=== PATIENT | female | born 1945 | race Caucasian/White ===

== ENCOUNTER 2017-04-30 13:09 | Emergency (ER) | payer OTHER, MEDICARE ==
[~2017-04-30] VITALS: Ht 160 cm; Wt 66.7 kg
--- NOTE | 2017-04-30 13:42 | ED UPPER/LOWER EXTREMITY COMPL ---
History of Present Illness General Chief Complaint: General Adult Stated Complaint: SIB DR OLIVEIRA TO R/O BLOOD CLOT Source: patient, family Exam Limitations: no limitations Vital Signs & Intake/Output Vital Signs & Intake/Output Vital Signs Date Time Temp Pulse Resp B/P B/P Pulse O2 O2 Flow FiO2 Mean Ox Delivery Rate 04/30 1555 96.7 66 20 145/77 97 04/30 1316 97.1 70 16 180/70 97 Room Air Allergies Coded Allergies: No Known Allergies (04/30/17) Reconcile Medications Ascorbate Calcium (Vitamin C) (Unknown Strength) TABLET (Unknown Dose) PO DAILY SUPPLEMENT (Reported) Aspirin (Ecotrin*) 81 MG TABLET. 1 TAB PO DAILY HEART/BLOOD (Reported) Calcium Carb/D3/Magnesium/Zinc (Dalton Mag Zinc + D3 Tablet) (Unknown Strength) TABLET (Unknown Dose) PO DAILY SUPPLEMENT (Reported) Cholecalciferol (Vitamin D3) (Vitamin D) (Unknown Strength) CAPSULE (Unknown Dose) PO DAILY SUPPLEMENT (Reported) Cranberry Extract (Cranberry) (Unknown Strength) CAPSULE (Unknown Dose) PO DAILY SUPPLEMENT (Reported) Cyclobenzaprine HCl 5 MG TABLET 1 TAB PO TIDPRN PRN pain Escitalopram Oxalate 10 MG TABLET 1 TAB PO DAILY MENTAL HEALTH (Reported) Fenofibrate Nanocrystallized (Fenofibrate) 145 MG TABLET 1 TAB PO DAILY CHOLESTEROL/TRIGLYCERIDES (Reported) Fish Oil/Dha/Epa (Fish Oil 1,200 MG Fish Oil) (Unknown Strength) CAPSULE ( Unknown Dose) PO DAILY SUPPLEMENT (Reported) Folic Acid (Unknown Strength) TABLET (Unknown Dose) PO DAILY SUPPLEMENT ( Reported) Hydrochlorothiazide 25 MG TABLET 0.5 TAB PO DAILY BP (Reported) Levothyroxine Sodium (Synthroid) 50 MCG TABLET 1 TAB PO AD THYROID (Reported) Levothyroxine Sodium 75 MCG TABLET 1 TAB PO AD THYROID (Reported) Magnesium Oxide (Magnesium) (Unknown Strength) CAPSULE (Unknown Dose) PO DAILY SUPPLEMENT (Reported) Meclizine HCl 12.5 MG TABLET 1 TAB PO PRN VERTIGO (Reported) Milk Thistle Seed Extract (Milk Thistle) (Unknown Strength) CAPSULE (Unknown Dose) PO DAILY SUPPLEMENT (Reported) Rosuvastatin Calcium (Crestor) 5 MG TABLET 1 TAB PO DAILY CHOLESTEROL ( Reported) Turmeric Root Extract (Turmeric) (Unknown Strength) CAPSULE (Unknown Dose) PO DAILY SUPPLEMENT (Reported) Tylenol With Codeine (Tylenol With Codeine #3 Tablet) 300 MG-30 MG TABLET 1 TAB PO BIDP PRN pain Ubidecarenone (Co Q-10) (Unknown Strength) CAPSULE (Unknown Dose) PO DAILY SUPPLEMENT (Reported) Triage Note: PT SENT TO RULE OUT DVT IN LLE. STATES THAT SHE FLEW HOME SATURDAY FROM [facility] AND THAT PRIOR TO FLYING HOME SHE WAS HAVING PAIN IN HER L CALF. PAIN HAS BEEN INCREASING SINCE Triage Nurses Notes Reviewed? yes Onset: Abrupt Duration: day(s): (5), constant, continues in ED, getting worse Timing: single episode today Severity: moderate, severe Severity Numbers: 8 Pain/Injury Location: Left: Leg. Method of Injury: unknown No Modifying Factors: none Associated Symptoms: none LMP (ages 10-50): unknown : No Patient currently breastfeeds: No HPI: 71-year-old female with a past medical history of hypertension, hyperlipidemia presents for evaluation of left lower leg pain. Patient states that symptoms have been present for about the past 4-5 days. Patient recently flew back from vacation on 2 plane rides lasting 4 AND A half hours each. Pain is present in the left lower leg and is worse with any type of movement or weightbearing. The pain resolves with rest. When the pain is present she rates it as an 8 out of 10. She's been taking ibuprofen without any improvement. She called her doctor earlier today is that she come emergency department to have DVT ruled out. She denies any previous history of DVT, recent surgery, recent trauma, any swelling, redness, fevers or any other associated symptoms. (CHAVO WASSERMAN PA-C) Past History Travel History Traveled to [place] past 21 day No Medical History Any Pertinent Medical History? see below for history Neurological: NONE EENT: NONE Cardiovascular: hypertension, hyperlipidemia Respiratory: NONE Gastrointestinal: NONE Hepatic: NONE Renal: NONE Musculoskeletal: NONE Psychiatric: NONE Endocrine: hypothyroidism Blood Disorders: NONE Cancer(s): NONE ELECTRONIC FIELD SERVICE ENGINEER/Reproductive: NONE Surgical History Surgical History: none Psychosocial History What is your primary language Moldovan Tobacco Use: Never used ETOH Use: denies use Illicit Drug Use: denies illicit drug use Family History Hx Contributory? No (CHAVO WASSERMAN PA-C) Review of Systems Review of Systems Constitutional: Reports: no symptoms. EENTM: Reports: no symptoms. Respiratory: Reports: no symptoms. Cardiovascular: Reports: no symptoms. Gastrointestinal/Abdominal: Reports: no symptoms. Genitourinary: Reports: no symptoms. Musculoskeletal: Reports: joint pain, muscle pain, muscle stiffness. Skin: Reports: no symptoms. Neurological/Psychological: Reports: no symptoms. Hematologic/Endocrine: Reports: no symptoms. Immunological: Reports: no symptoms. All Other Systems: Reviewed and Negative (LISY PA-C,CHAVO) Physical Exam Physical Exam General Appearance: well developed/nourished, no apparent distress, alert, awake Head: atraumatic, normal appearance Eyes: Bilateral: normal appearance, PERRL, EOMI. Ears, Nose, Throat: normal pharynx, normal ENT inspection, hearing grossly normal Neck: normal inspection, supple, full range of motion Cardiovascular/Respiratory: normal breath sounds, normal peripheral pulses, regular rate/rhythm, no respiratory distress Peripheral Pulses: 2+ radial (R), 2+ radial (L) Back: normal inspection, normal range of motion, no vertebral tenderness Leg Left: normal range of motion, normal inspection, tenderness (lateral lower extremity), pain, soft tissue tenderness, there is sae with palpation of the lateral aspect of the left lower leg. full ROM intact. no bruising or swelling. neurovascular supply intact. Leg Right: normal range of motion, normal inspection Hip Left: normal range of motion, normal inspection Hip Right: normal range of motion, normal inspection Knee Left: normal range of motion, normal inspection Knee Right: normal range of motion, normal inspection Foot Left: normal inspection, normal range of motion Foot Right: normal inspection, normal range of motion Lower Extremity Reflexes: 2+: knee (R), knee (L). Neurologic/Tendon: normal sensation, normal motor functions, normal tendon functions, responds to pain, no evidence tendon injury, no pulse deficit Skin: intact, normal color, warm/dry Lymphatic: no anterior cervical alice (LISY PA-C,CHAVO) Progress Differential Diagnosis: cellulitis, CHF, compartment syndrome, contusion, dislocation, DVT, fracture, sprain, tendon injury Plan of Care: Orders Procedure Date/time Status US-DUPLEX VENOUS EXTREM UNI 04/30 1342 Active Patient seen and evaluated. There is no swelling of the left lower extremity. Pain is reproducible with weightbearing and palpation. Suspect this is more of a muscle issue. However because patient has risk factor of recently being immobilized on a plane we will check an ultrasound. We'll also check an x-ray. Patient declines any pain medication at this time. 4:08 PM: X-ray shows some arthritis in the knee. Ultrasound negative for DVT. Suspect a muscle etiology. Advised rest heating pad elevation. Tylenol as needed for pain. Tylenol with codeine and cyclobenzaprine for severe pain. Advised patient this can cause drowsiness. Follow-up with the primary care doctor for further evaluation. Discussed return precautions in detail. Case discussed with Dr. GUNDERSON and he agrees with the plan. I discussed with the patient at length all of their results. I had an extensive conversation regarding need for close follow up with their primary care physician this week as well as return precautions. I answered all of their questions, they feel comfortable with the plan and follow-up care. I discussed with the patient/family the medications that they will receive. I gave them signs and symptoms that could indicate an adverse reaction. I have advised them to limit their activities until they can see how they respond to the medication. (LISY ROCHE,CHAVO) Diagnostic Imaging: Viewed by Me: Radiology Read, Ultrasound. Discussed w/RAD: Radiology Read, Ultrasound. Radiology Impression: PATIENT: TOYIN KIM PRESENT AGE: 71 PATIENT ACCOUNT NO: [id number] : 44 LOCATION: [facility] ORDERING PHYSICIAN: CHAVO WASSERMAN PA-C SERVICE DATE: 04/30/17 EXAM TYPE: RAD - [id number], LEFT EXAMINATION: XR TIBIA AND FIBULA, LEFT CLINICAL INFORMATION: Left lower leg pain for 5 days. COMPARISON: None TECHNIQUE: AP and lateral views of the left tibia and fibula were obtained. FINDINGS: No acute fracture or cortical disruption. Alignment is anatomic at the knee and ankle. Mild degenerative changes at the knee with joint space narrowing at the medial compartment and osteophyte formation. Scattered soft tissue calcifications. IMPRESSION: No acute fracture or malalignment. Degenerative changes at the medial compartment of the left knee. DICTATED BY: JEFFREY SWEENEY,JAKE DATE/ TIME DICTATED:04/30/171408 DIAMOND SELECTOR:USHA DATE/TIME TRANSCRIBED: 04/30/171408 Comments: PATIENT: TOYIN KIM PRESENT AGE: 71 PATIENT ACCOUNT NO: [id number] : 44 LOCATION: [facility] ORDERING PHYSICIAN: CHAVO WASSERMAN PA-C SERVICE DATE: 04/30/17 EXAM TYPE: US - US-DUPLEX VENOUS EXTREM UNI EXAMINATION: US TRIPLEX LOWER EXTREMITY, LEFT CLINICAL INFORMATION: Pain and swelling. COMPARISON: None TECHNIQUE: Color-flow triplex imaging with spectral analysis and compression Doppler were performed on the lower extremity. FINDINGS: Respiratory variation, normal compression and augmented flow are noted throughout the left lower extremity. The visualized common femoral vein, superficial femoral vein, profunda femoral vein, popliteal vein and midcalf peroneal and posterior tibial venous segments show no evidence of deep venous thrombosis. Popliteal cyst measuring 1.6 x 0.6 x 1 cm IMPRESSION: Normal triplex scan without evidence of deep venous thrombosis involving the lower extremity. DICTATED BY: DM PARKER MD DATE/TIME DICTATED:04/30/171512 DIAMOND SELECTOR:USHA DATE/TIME TRANSCRIBED:04/30/171512 CONFIDENTIAL, DO NOT COPY WITHOUT APPROPRIATE AUTHORIZATION. (LISY ROCHE,CHAVO) Departure Departure Disposition: HOME OR SELF CARE Condition: Stable Clinical Impression Primary Impression: Left leg pain Referrals: JENNI SWEENEY,ELIZABETH Additional Instructions: Rest, avoid excessive walking and physical activity. Apply heating pad to the leg. Use Tylenol with Codeine as needed for pain. Cyclobenzaprine is a muscle relaxer that can be used every 8 hours as needed for pain. This may cause drowsiness especially when combined with Tylenol with codeine. Make a follow-up appointment with your primary care doctor this coming week. Return to the emergency department with any concerns. Please go over all results of today's visit with your primary care doctor. Contact your primary care doctor to let them know you were here in the emergency room. There may be nonspecific findings which may not be related to your visit today here in the emergency room but may require further evaluation and chronic monitoring by your primary care doctor. If you had a laceration today the chance of foreign body always remains. You should follow-up with your primary care doctor for recheck in 3-5 days for a wound check. If you had an x-ray done there is a chance that a fracture could have been missed on initial read and you should follow-up with your primary care doctor for repeat x-rays if symptoms persist. If your blood pressure was elevated here in the emergency room please have rechecked by her primary care doctor within the next 48 hours by your primary care doctor. If you were prescribed a narcotic here in the emergency room or any type of controlled substances you're not allowed to drive while taking this medication or operate any type of heavy machinery. Narcotics can make you feel lightheaded dizziness nausea and can cause constipation. You may need to picking tech a stool softener. Thank you for choosing [facility] emergency room. Please return to the emergency room immediately if you have any other concerns worsening of symptoms. Departure Forms: Customer Survey General Discharge Information Prescriptions: Current Visit Scripts Tylenol With Codeine (Tylenol With Codeine #3 Tablet) 1 TAB PO BIDP PRN pain #10 TAB Cyclobenzaprine HCl 1 TAB PO TIDPRN PRN pain #30 TAB (CHAVO WASSERMAN PA-C) PA/TONGUE STITCHER Co-Sign Statement Statement: ED Attending supervision documentation- x I saw and evaluated the patient. I have also reviewed all the pertinent lab results and diagnostic results. I agree with the findings and the plan of care as documented in the PA's/TONGUE STITCHER's documentation. [] I have reviewed the ED Record and agree with the PA's/TONGUE STITCHER's documentation. [] Additions or exceptions (if any) to the PAs/TONGUE STITCHER's note and plan are summarized below: [] (JALYN SWEENEY,JANETTE)
[2017-04-30] MEDS ORDERED: CRESTOR5 M1 PO (14:14)
[2017-04-30] MEDS ORDERED: SYNTHROID50 MCG PO (14:15)
[2017-04-30] MEDS ORDERED: FENOFIBRATE145 M1 PO (14:15)
[2017-04-30] MEDS ORDERED: HYDROCHLOROTHIA25 M1 PO (14:15)
--- NOTE | 2017-04-30 14:15 | RADIOLOGY REPORT ---
EXAMINATION: XR TIBIA AND FIBULA, LEFT CLINICAL INFORMATION: Left lower leg pain for 5 days. COMPARISON: None TECHNIQUE: AP and lateral views of the left tibia and fibula were obtained. FINDINGS: No acute fracture or cortical disruption. Alignment is anatomic at the knee and ankle. Mild degenerative changes at the knee with joint space narrowing at the medial compartment and osteophyte formation. Scattered soft tissue calcifications. IMPRESSION: No acute fracture or malalignment. Degenerative changes at the medial compartment of the left knee.
[2017-04-30] MEDS ORDERED: ASPIRIN EC81 M1 PO (14:16)
[2017-04-30] MEDS ORDERED: ESCITALOPRAM OX10 MG PO (14:16)
[2017-04-30] MEDS ORDERED: MECLIZINE HCL12.5 M1 PO (14:16)
[2017-04-30] MEDS ORDERED: LEVOTHYROXINE75 MCG PO (14:17)
[2017-04-30] MEDS ORDERED: FISH OIL 1,2001 EACH PO (14:17)
[2017-04-30] MEDS ORDERED: CRANBERRY425 MG PO (14:18)
[2017-04-30] MEDS ORDERED: VITAMIN C500 M6 PO (14:18)
[2017-04-30] MEDS ORDERED: CAL MAG ZINC +1 EAC1 PO (14:18)
[2017-04-30] MEDS ORDERED: CO Q-10300 MG PO (14:19)
[2017-04-30] MEDS ORDERED: TURMERIC500 M1 PO (14:19)
[2017-04-30] MEDS ORDERED: FOLIC ACID0.8 M2 PO (14:19)
[2017-04-30] MEDS ORDERED: VITAMIN D2000 UNIT PO (14:20)
[2017-04-30] MEDS ORDERED: MILK THISTLE175 M1 PO (14:20)
[2017-04-30] MEDS ORDERED: MAGNESIUM400 M1 PO (14:21)
--- NOTE | 2017-04-30 15:43 | ULTRASOUND REPORT ---
EXAMINATION: US TRIPLEX LOWER EXTREMITY, LEFT CLINICAL INFORMATION: Pain and swelling. COMPARISON: None TECHNIQUE: Color-flow triplex imaging with spectral analysis and compression Doppler were performed on the lower extremity. FINDINGS: Respiratory variation, normal compression and augmented flow are noted throughout the left lower extremity. The visualized common femoral vein, superficial femoral vein, profunda femoral vein, popliteal vein and midcalf peroneal and posterior tibial venous segments show no evidence of deep venous thrombosis. Popliteal cyst measuring 1.6 x 0.6 x 1 cm IMPRESSION: Normal triplex scan without evidence of deep venous thrombosis involving the lower extremity.
[2017-04-30 15:55] VITALS: BP 145/77
[2017-04-30] MEDS ORDERED: TYLENOL WITH C1 EACH PO (16:11)
[2017-04-30] MEDS ORDERED: CYCLOBENZAPRINE5 M2 PO (16:11)
== END 2017-04-30 16:22 ==
LOC: ERH 13:09
DX: M79.605 Pain in left leg (principal)
CPT/HCPCS: 73590-LT